=== PATIENT | female | born 2000 | race Caucasian/White ===

== ENCOUNTER 2024-07-08 06:10 | Day surgery (SDC) | payer BC, OTHER ==
[2024-07-06 14:54] VITALS: BMI 46.6
[2024-07-08] MEDS ORDERED: PROPOFOL 20 ML ONE ×2 (07:31→07:34)
[2024-07-08] MEDS ORDERED: Fentanyl 250 MCG/5 ML VIAL ONE (07:31)
[2024-07-08] MEDS ORDERED: Dexamethasone 20 MG/5 ML VIAL ONE (07:52)
[2024-07-08] MEDS ORDERED: Ondansetron PF 4 MG/2 ML Vial ONE (07:52)
[2024-07-08] MEDS ORDERED: fentaNYL 50 mcg/mL 1 mL Vial ONE ×2 (08:14→08:42)
[2024-07-08] MEDS ORDERED: ePHEDrine Sulfate 50 MG/10 ML VIAL ONE (08:57)
[2024-07-08] MEDS ORDERED: Dexamethasone 4 mg/ml Vial ONE (08:57)
[2024-07-08] MEDS ORDERED: Hydrocodone-Acetamin 15 ML UDCUP ONE (09:19)
== END 2024-07-08 10:05 | disposition home or self-care (01) ==
LOC: CSHSDC 06:10
PROVIDERS: ATTEND Specialist
PROC: 0CTPXZZ Resection of Tonsils, External Approach (ICD-10-PCS; principal; 2024-07-08)
DX: J35.01 Chronic tonsillitis (principal); I10 Essential (primary) hypertension; G47.33 Obstructive sleep apnea (adult) (pediatric); F17.210 Nicotine dependence, cigarettes, uncomplicated; Z91.040 Latex allergy status; Z79.899 Other long term (current) drug therapy
CPT/HCPCS: 88304; J1100; J2405; J2704; J3010